=== PATIENT | male | born 1960 | race Caucasian/White ===

== ENCOUNTER 2018-10-29 06:23 | Day surgery (SDC) | payer BC, SELFPAY ==
[2018-10-29] VITALS (9 sets, daily range): BP systolic 131–157; BP diastolic 73–90; PULSE 65–74; RESP 12–17; TEMP 35.9–36.7; O2SAT 96–100
[2018-10-29] MEDS: Lactated Ringers 1,000 ML 30 ML IV ×2 (07:00→09:05)
[2018-10-29] MEDS: Lidocaine 1% Pres-Free 5 ML VIAL (08:51)
--- NOTE | 2018-10-29 10:34 | W.PM.OP ---
Date of service: 10/29/18 Time of Service: 08:00 Operative Note DATE OF PROCEDURE: 10/29/18 PRE-OP DIAGNOSIS: Recurrent right inguinal hernia POST-OP DIAGNOSIS: other (Recurrent right direct inguinal hernia) PROCEDURE: Laparoscopic total extraperitoneal right inguinal hernia repair with mesh SURGEON: Sundeep Garcia PARACHUTE HARNESS RIGGER: Daisy Flores ANESTHESIA: GETA (Immanuel Mariscal, ASSISTANT READING TEACHER; ASA 2 Mallampati class II) and regional (TAPBlock bilateral with 1.3% Exparel and 0.5% Marcaine) ESTIMATED BLOOD LOSS: 1 PATHOLOGY: none sent COMPLICATIONS: None Patient was transported to: PACU Patient's condition: stable Implants: Covidien pro-pump installation and servicer laparoscopic mesh lot number [id number] Indications: 58-year-old gentleman with history of right inguinal hernia referred for recurrent right inguinal hernia. He describes working several 3-4 weeks ago, performing heavy labor when he heard a pop in his right groin followed by a lot of discomfort. Since then he has had fairly constant right inguinal pain relieved with rest and NSAIDs. If he resumes any heavy activities he is the discomfort recurs him almost immediately upon heavy exertion. He has not noticed any bulge in his right groin that is tender. He was seen by his primary care provider who diagnosed the hernia recurrence. Physical examination by me was consistent with a recurrent left inguinal hernia. Recommended laparoscopic repair for recurrent right inguinal hernia. I reviewed the procedure with Linda, and discussed the risks of the procedure. All his questions were answered to his satisfaction. Findings: In examining the extraperitoneal space on the right side, no recurrent indirect inguinal hernia was identified, but a direct inguinal hernia was noted. Dissection of the left extraperitoneal space demonstrated no no hernia of the indirect, direct, or femoral space. A Covidien mesh was subsequently placed to cover the right direct indirect and femoral spaces. Procedure Description: The patient was brought to the operating room. He was positioned supine, and all bony prominences were padded. He received Ancef 2 g preoperatively. An endotracheal tube was placed by anesthesia and sedation was titrated for effect. An appropriate timeout was taken reviewing the patient's identification, allergies, medications, procedure, and site. His arms were positioned at 90 degrees. A Hyde catheter was inserted after intubation, and sequential compression devices were applied prior to intubation. The abdomen was then prepped with ChloraPrep and block draped in standard sterile fashion for a laparoscopic total extraperitoneal inguinal hernia repair. I began by making a 2.5 cm linear transverse incision infraumbilically. Incision was carried down to the linea alba using sharp and blunt dissection. Once linea alba was identified, I made a linear transverse incision just lateral to the linea alba through the anterior rectus fascia to expose the underlying muscle. I then used an S retractor to sweep the muscle laterally exposing the posterior rectus sheath. Using my finger then a Yankauer suction I gently dilated the posterior tract down to the pubic symphysis. This was followed by dissection using a [employer] Spacemaker introducer dilator trocar. The introducer for the catheter was advanced to the pubic symphysis and slightly over it I then withdrew through the introducer piece slid the dilator portion further into the tract, then under direct visualization the dilator balloon was insufflated until I could clearly see the pubic symphysis and Vini's ligament exposed. The the dilator balloon was then removed, and the extraperitoneal space of Retzius was insufflated with CO2. The Spacemaker trocar balloon was then insufflated. I then placed two 5 mm trochars under direct visualization in the midline. The first was placed 2 cm superior to the pubic symphysis, and the second was placed between the 5 mm trocar in the Spacemaker trocar. I then proceeded by completing dissection of the Vini's ligament on the left and right side from the midline. I then turned my attention to developing the potential space on the right. I dissected out the right potential space from the inferior epigastrics to the right anterior superior iliac spine. The vas deferens was then identified, and the cord structures associated were then dissected free circumferentially there is a small cord lipoma that was reduced but I find no evidence of a indirect inguinal hernia. Inspecting the right side the indirect space was clearly open as if the hernia had been present and reduced at the time of induction of anesthesia. There is no evidence of a femoral hernia on the right side. I then repeated my dissection on the left side from the left inferior epigastric vessels to the left anterior superior iliac spine was bluntly dissected to expose the cord structures. The left fast vas deferens was identified. Subsequently the vas deferens and associated cord structures were circumferentially dissected. There is no evidence of a left direct, indirect, or femoral hernia. Proceeded to place a Covidien pro-pump installation and servicer laparoscopic mesh Blue Line centered medially. The mesh was rolled and introduced through the Spacemaker trocar into the space of Retzius. The medial portion of the mesh was aligned at the center of the pubic symphysis or just lateral to her just to the left of the center the remainder of the mesh was stretched out to the anterior superior iliac spine. The mesh was then unrolled intra-abdominally from a superior to inferior to overlie the direct, indirect and femoral potential space spaces. It was pressed into place with good apposition to the tissue. The abdomen was desufflated 5 trochars removed under direct visualization I did hold the mesh inferior portion in place as the space closed down the Spacemaker trocar was removed. The anterior rectus fascia was closed using 0 Vicryl suture in a [id number] fashion. The umbilical incision was closed in layers with 3-0 Vicryl sutures approximating the subcutaneous tissue and 4-0 Vicryl closing the skin in subcuticular fashion. The remainder the trocar incisions were closed with the 4-0 Vicryl in subcuticular fashion. Skin affix and dry sterile dressings were applied. There are no comp occasions during the case patient tolerated very well he was extubated in the operating room, and brought to the postanesthesia care unit in good condition. All counts were reported as correct x2.
--- NOTE | 2018-10-29 10:41 | ROE_ITS ---
Date of service: 10/29/18 Time of Service: 08:00 Operative Note DATE OF PROCEDURE: 10/29/18 PRE-OP DIAGNOSIS: Recurrent right inguinal hernia POST-OP DIAGNOSIS: other (Recurrent right direct inguinal hernia) PROCEDURE: Laparoscopic total extraperitoneal right inguinal hernia repair with mesh SURGEON: Sundeep Garcia HACK DRIVER: Daisy Flores ANESTHESIA: GETA (Immanuel Mariscal, GARMENT ALTERATION EXAMINER; ASA 2 Mallampati class II) and regional ( TAPBlock bilateral with 1.3% Exparel and 0.5% Marcaine) ESTIMATED BLOOD LOSS: 1 PATHOLOGY: none sent COMPLICATIONS: None Patient was transported to: PACU Patient's condition: stable Implants: Covidien pro-extension course counselor laparoscopic mesh lot number [id number] Indications: 58-year-old gentleman with history of right inguinal hernia referred for recurrent right inguinal hernia. He describes working several 3-4 weeks ago, performing heavy labor when he heard a pop in his right groin followed by a lot of discomfort. Since then he has had fairly constant right inguinal pain relieved with rest and NSAIDs. If he resumes any heavy activities he is the discomfort recurs him almost immediately upon heavy exertion. He has not noticed any bulge in his right groin that is tender. He was seen by his primary care provider who diagnosed the hernia recurrence. Physical examination by me was consistent with a recurrent left inguinal hernia. Recommended laparoscopic repair for recurrent right inguinal hernia. I reviewed the procedure with Linda, and discussed the risks of the procedure. All his questions were answered to his satisfaction. Findings: In examining the extraperitoneal space on the right side, no recurrent indirect inguinal hernia was identified, but a direct inguinal hernia was noted. Dissection of the left extraperitoneal space demonstrated no no hernia of the indirect, direct, or femoral space. A Covidien mesh was subsequently placed to cover the right direct indirect and femoral spaces. Procedure Description: The patient was brought to the operating room. He was positioned supine, and all bony prominences were padded. He received Ancef 2 g preoperatively. An endotracheal tube was placed by anesthesia and sedation was titrated for effect. An appropriate timeout was taken reviewing the patient's identification , allergies, medications, procedure, and site. His arms were positioned at 90 degrees. A Hyde catheter was inserted after intubation, and sequential compression devices were applied prior to intubation. The abdomen was then prepped with ChloraPrep and block draped in standard sterile fashion for a laparoscopic total extraperitoneal inguinal hernia repair. I began by making a 2.5 cm linear transverse incision infraumbilically. Incision was carried down to the linea alba using sharp and blunt dissection. Once linea alba was identified, I made a linear transverse incision just lateral to the linea alba through the anterior rectus fascia to expose the underlying muscle. I then used an S retractor to sweep the muscle laterally exposing the posterior rectus sheath. Using my finger then a Yankauer suction I gently dilated the posterior tract down to the pubic symphysis. This was followed by dissection using a [employer] Spacemaker introducer dilator trocar. The introducer for the catheter was advanced to the pubic symphysis and slightly over it I then withdrew through the introducer piece slid the dilator portion further into the tract, then under direct visualization the dilator balloon was insufflated until I could clearly see the pubic symphysis and Vini 's ligament exposed. The the dilator balloon was then removed, and the extraperitoneal space of Retzius was insufflated with CO2. The Spacemaker trocar balloon was then insufflated. I then placed two 5 mm trochars under direct visualization in the midline. The first was placed 2 cm superior to the pubic symphysis, and the second was placed between the 5 mm trocar in the Spacemaker trocar. I then proceeded by completing dissection of the Vini's ligament on the left and right side from the midline. I then turned my attention to developing the potential space on the right. I dissected out the right potential space from the inferior epigastrics to the right anterior superior iliac spine. The vas deferens was then identified, and the cord structures associated were then dissected free circumferentially there is a small cord lipoma that was reduced but I find no evidence of a indirect inguinal hernia. Inspecting the right side the indirect space was clearly open as if the hernia had been present and reduced at the time of induction of anesthesia. There is no evidence of a femoral hernia on the right side. I then repeated my dissection on the left side from the left inferior epigastric vessels to the left anterior superior iliac spine was bluntly dissected to expose the cord structures. The left fast vas deferens was identified. Subsequently the vas deferens and associated cord structures were circumferentially dissected. There is no evidence of a left direct, indirect, or femoral hernia. Proceeded to place a Covidien pro-extension course counselor laparoscopic mesh Blue Line centered medially. The mesh was rolled and introduced through the Spacemaker trocar into the space of Retzius. The medial portion of the mesh was aligned at the center of the pubic symphysis or just lateral to her just to the left of the center the remainder of the mesh was stretched out to the anterior superior iliac spine. The mesh was then unrolled intra-abdominally from a superior to inferior to overlie the direct, indirect and femoral potential space spaces. It was pressed into place with good apposition to the tissue. The abdomen was desufflated 5 trochars removed under direct visualization I did hold the mesh inferior portion in place as the space closed down the Spacemaker trocar was removed. The anterior rectus fascia was closed using 0 Vicryl suture in a [id number] fashion. The umbilical incision was closed in layers with 3-0 Vicryl sutures approximating the subcutaneous tissue and 4-0 Vicryl closing the skin in subcuticular fashion. The remainder the trocar incisions were closed with the 4-0 Vicryl in subcuticular fashion. Skin affix and dry sterile dressings were applied. There are no comp occasions during the case patient tolerated very well he was extubated in the operating room, and brought to the postanesthesia care unit in good condition. All counts were reported as correct x2.
--- NOTE | 2018-10-29 11:36 | W.PM.DSUDISC ---
Discharge Plan Disposition Patient Disposition: HOME Condition: Good Discharge Details Reason For Visit: RECURRENT (L) INGUINAL Attending Provider: Sundeep Garcia Primary Care Provider: Royla Sherwood Home Meds and New Rx's Prescriptions: New tramadol 50 mg Tablet 50 mg PO Q6H PRN PRNQty: 12 RF: 0 Continue naproxen sodium 550 MG tablet 550 mg PO Q12H PRN Qty: 60 RF: 6 magnesium oxide 400 MG capsule 400 mg PO HS Qty: 30 RF: 6 multivitamin [Daily Multi-Vitamin] 1 EACH tablet 1 ea PO DAILY RF: 0 iron 18 MG tablet 50 mg PO PRN RF: 0 loratadine-pseudoephedrine [Claritin-D 24 Hour] 10-240 mg Tablet Extended Release 24 Hr 1 tab PO DAILY PRNRF: 0 riboflavin (vitamin B2) [Vitamin B-2] 100 MG tablet 100 mg PO BID RF: 0 ibuprofen 200 MG capsule 200 - 600 mg PO PRN PRNRF: 0 Discharge Instructions Instructions: Laparoscopic Herniorrhaphy (DC) Additional Instructions: Dr. Sundeep Garcia Post-Operative Discharge Instructions 1. Because there will be medication in your system for the next 24 hours, you may feel a little sleepy. Your coordination will be affected. Therefore: Do not drive or operate dangerous equipment for 24 hours. Do not drink alcohol beverages for 24 hours (not even beer). Plan to go home and rest for the day. Restrictions: Do not lift over 20lbs for 2 weeks. No strenuous bending or twisting for 2 weeks, if it hurts stop. No baths, you can shower. Let warm soapy water run over wound, then pat wound dry. Activity: The day of surgery spend most of the day resting in a comfortable bed or recliner. 2-3 times during the day get up and walk around the house. The day after surgery, or after your discharge, walk at least 3 times a day and spend increasing amounts of time walking and sitting up. If you are tired rest, but keep moving as able. Diet: Resume home diet as tolerated. Start with a light diet, your appetite will improve with time. Drink at least 4-6 glasses of water per day to keep hydrated. Wound Care: Removed dressing in 24 hrs, skin glue will wear off. You may cover the wound with a dry sterile dressing to keep clothing from rubbing against the wound. Continue all your regular medications unless directed otherwise. Call the office or the [facility] , If you have: Pain not controlled with pain medication. Nausea and vomiting. Temperature greater than 101 degrees Fahrenheit. Drainage from your wound that soaks through your dressing. *No more than 4000 milligrams of Tylenol in 24 hours. Narcotic pain medication can be constipating, if you have not had a bowel movement within 3 days use a laxative, I recommend Milk of Magnesia (MOM) 1oz. every 6 hrs until you have a bowel movement. I understand the above instructions and have no questions. Signature of Patient or Responsible Adult Escort Date/Time Name of Responsible Adult Escort Signature of Nurse Date/Time Revised 03/20/11 Referrals: Sundeep Garcia DO [ [facility] STAFF PHYSICIAN] - 11/18/18 9:45 am (Follow up after Lap total extraperitoneal inguinal hernia repair) Activity:: see instructions Remove Dressings/Wound Care:: 24 hours Shower/Bathe:: 24 hours Diet:: As Tolerated Discharge Orders Discharge Orders: Discharge Order (Routine); Ordered 10/29/18 Ordered By: Sundeep Garcia DS: Diagnosis Discharge Diagnosis (1) Recurrent inguinal hernia of right side without obstruction or gangrene: Status: Acute Asessment and Plan: Repaired Laparoscopically: Operative Note DATE OF PROCEDURE: 10/29/18 PRE-OP DIAGNOSIS: Recurrent right inguinal hernia POST-OP DIAGNOSIS: other (Recurrent right direct inguinal hernia) PROCEDURE: Laparoscopic total extraperitoneal right inguinal hernia repair with mesh SURGEON: uSndeep Garcia ROPE LAYING MACHINE OPERATOR: Daisy Flores ANESTHESIA: GETA (Immanuel Mariscal, SENIOR WEB ANALYST; ASA 2 Mallampati class II) and regional (TAPBlock bilateral with 1.3% Exparel and 0.5% Marcaine) ESTIMATED BLOOD LOSS: 1 PATHOLOGY: none sent COMPLICATIONS: None Patient was transported to: PACU Patient's condition: stable Implants: Covidien pro-ultrasonic tester laparoscopic mesh lot number [id number] Indications: 58-year-old gentleman with history of right inguinal hernia referred for recurrent right inguinal hernia. He describes working several 3-4 weeks ago, performing heavy labor when he heard a pop in his right groin followed by a lot of discomfort. Since then he has had fairly constant right inguinal pain relieved with rest and NSAIDs. If he resumes any heavy activities he is the discomfort recurs him almost immediately upon heavy exertion. He has not noticed any bulge in his right groin that is tender. He was seen by his primary care provider who diagnosed the hernia recurrence. Physical examination by me was consistent with a recurrent left inguinal hernia. Recommended laparoscopic repair for recurrent right inguinal hernia. I reviewed the procedure with Mr. Mckeon, and discussed the risks of the procedure. All his questions were answered to his satisfaction. Findings: In examining the extraperitoneal space on the right side, no recurrent indirect inguinal hernia was identified, but a direct inguinal hernia was noted. Dissection of the left extraperitoneal space demonstrated no no hernia of the indirect, direct, or femoral space. A Covidien mesh was subsequently placed to cover the right direct indirect and femoral spaces. Procedure Description: The patient was brought to the operating room. He was positioned supine, and all bony prominences were padded. He received Ancef 2 g preoperatively. An endotracheal tube was placed by anesthesia and sedation was titrated for effect. An appropriate timeout was taken reviewing the patient's identification, allergies, medications, procedure, and site. His arms were positioned at 90 degrees. A Hyde catheter was inserted after intubation, and sequential compression devices were applied prior to intubation. The abdomen was then prepped with ChloraPrep and block draped in standard sterile fashion for a laparoscopic total extraperitoneal inguinal hernia repair. I began by making a 2.5 cm linear transverse incision infraumbilically. Incision was carried down to the linea alba using sharp and blunt dissection. Once linea alba was identified, I made a linear transverse incision just lateral to the linea alba through the anterior rectus fascia to expose the underlying muscle. I then used an S retractor to sweep the muscle laterally exposing the posterior rectus sheath. Using my finger then a Yankauer suction I gently dilated the posterior tract down to the pubic symphysis. This was followed by dissection using a [employer] Spacemaker introducer dilator trocar. The introducer for the catheter was advanced to the pubic symphysis and slightly over it I then withdrew through the introducer piece slid the dilator portion further into the tract, then under direct visualization the dilator balloon was insufflated until I could clearly see the pubic symphysis and Vini's ligament exposed. The the dilator balloon was then removed, and the extraperitoneal space of Retzius was insufflated with CO2. The Spacemaker trocar balloon was then insufflated. I then placed two 5 mm trochars under direct visualization in the midline. The first was placed 2 cm superior to the pubic symphysis, and the second was placed between the 5 mm trocar in the Spacemaker trocar. I then proceeded by completing dissection of the Vini's ligament on the left and right side from the midline. I then turned my attention to developing the potential space on the right. I dissected out the right potential space from the inferior epigastrics to the right anterior superior iliac spine. The vas deferens was then identified, and the cord structures associated were then dissected free circumferentially there is a small cord lipoma that was reduced but I find no evidence of a indirect inguinal hernia. Inspecting the right side the indirect space was clearly open as if the hernia had been present and reduced at the time of induction of anesthesia. There is no evidence of a femoral hernia on the right side. I then repeated my dissection on the left side from the left inferior epigastric vessels to the left anterior superior iliac spine was bluntly dissected to expose the cord structures. The left fast vas deferens was identified. Subsequently the vas deferens and associated cord structures were circumferentially dissected. There is no evidence of a left direct, indirect, or femoral hernia. Proceeded to place a Covidien pro-ultrasonic tester laparoscopic mesh Blue Line centered medially. The mesh was rolled and introduced through the Spacemaker trocar into the space of Retzius. The medial portion of the mesh was aligned at the center of the pubic symphysis or just lateral to her just to the left of the center the remainder of the mesh was stretched out to the anterior superior iliac spine. The mesh was then unrolled intra-abdominally from a superior to inferior to overlie the direct, indirect and femoral potential space spaces. It was pressed into place with good apposition to the tissue. The abdomen was desufflated 5 trochars removed under direct visualization I did hold the mesh inferior portion in place as the space closed down the Spacemaker trocar was removed. The anterior rectus fascia was closed using 0 Vicryl suture in a [id number] fashion. The umbilical incision was closed in layers with 3-0 Vicryl sutures approximating the subcutaneous tissue and 4-0 Vicryl closing the skin in subcuticular fashion. The remainder the trocar incisions were closed with the 4-0 Vicryl in subcuticular fashion. Skin affix and dry sterile dressings were applied. There are no comp occasions during the case patient tolerated very well he was extubated in the operating room, and brought to the postanesthesia care unit in good condition. All counts were reported as correct x2.
--- NOTE | 2018-10-29 11:43 | PDOC.DSDIS_ITS ---
Discharge Plan Disposition Patient Disposition: HOME Condition: Good Discharge Details Reason For Visit: RECURRENT (L) INGUINAL Attending Provider: Sundeep Garcia Primary Care Provider: Royal Sherwood Home Meds and New Rx's Prescriptions: New tramadol 50 mg Tablet 50 mg PO Q6H PRN PRNQty: 12 RF: 0 Continue naproxen sodium 550 MG tablet 550 mg PO Q12H PRN Qty: 60 RF: 6 magnesium oxide 400 MG capsule 400 mg PO HS Qty: 30 RF: 6 multivitamin [Daily Multi-Vitamin] 1 EACH tablet 1 ea PO DAILY RF: 0 iron 18 MG tablet 50 mg PO PRN RF: 0 loratadine-pseudoephedrine [Claritin-D 24 Hour] 10-240 mg Tablet Extended Release 24 Hr 1 tab PO DAILY PRNRF: 0 riboflavin (vitamin B2) [Vitamin B-2] 100 MG tablet 100 mg PO BID RF: 0 ibuprofen 200 MG capsule 200 - 600 mg PO PRN PRNRF: 0 Discharge Instructions Instructions: Laparoscopic Herniorrhaphy (DC) Additional Instructions: Dr. Sundeep Garcia Post-Operative Discharge Instructions 1. Because there will be medication in your system for the next 24 hours, you may feel a little sleepy. Your coordination will be affected. Therefore: * Do not drive or operate dangerous equipment for 24 hours. * Do not drink alcohol beverages for 24 hours (not even beer). * Plan to go home and rest for the day. Restrictions: * Do not lift over 20lbs for 2 weeks. * No strenuous bending or twisting for 2 weeks, if it hurts stop. * No baths, you can shower. Let warm soapy water run over wound, then pat wound dry. Activity: * The day of surgery spend most of the day resting in a comfortable bed or recliner. 2-3 times during the day get up and walk around the house. * The day after surgery, or after your discharge, walk at least 3 times a day and spend increasing amounts of time walking and sitting up. If you are tired rest, but keep moving as able. Diet: * Resume home diet as tolerated. * Start with a light diet, your appetite will improve with time. * Drink at least 4-6 glasses of water per day to keep hydrated. Wound Care: * Removed dressing in 24 hrs, skin glue will wear off. * You may cover the wound with a dry sterile dressing to keep clothing from rubbing against the wound. Continue all your regular medications unless directed otherwise. Call the office or the Hospital Millinery Department Manager , If you have: * Pain not controlled with pain medication. * Nausea and vomiting. * Temperature greater than 101 degrees Fahrenheit. * Drainage from your wound that soaks through your dressing. *No more than 4000 milligrams of Tylenol in 24 hours. Narcotic pain medication can be constipating, if you have not had a bowel movement within 3 days use a laxative, I recommend Milk of Magnesia (MOM) 1oz. every 6 hrs until you have a bowel movement. I understand the above instructions and have no questions. _ Signature of Patient or Responsible Adult Escort Date/Time _ Name of Responsible Adult Escort _ Signature of Nurse Date/Time Revised 03/20/11 Referrals: Sundeep Garcia DO [ [facility] STAFF PHYSICIAN] - 11/18/18 9:45 am (Follow up after Lap total extraperitoneal inguinal hernia repair) Activity:: see instructions Remove Dressings/Wound Care:: 24 hours Shower/Bathe:: 24 hours Diet:: As Tolerated Discharge Orders Discharge Orders: Discharge Order (Routine); Ordered 10/29/18 Ordered By: Sundeep Garcia DS: Diagnosis Discharge Diagnosis (1) Recurrent inguinal hernia of right side without obstruction or gangrene: Status: Acute Asessment and Plan: Repaired Laparoscopically: Operative Note DATE OF PROCEDURE: 10/29/18 PRE-OP DIAGNOSIS: Recurrent right inguinal hernia POST-OP DIAGNOSIS: other (Recurrent right direct inguinal hernia) PROCEDURE: Laparoscopic total extraperitoneal right inguinal hernia repair with mesh SURGEON: Sundeep Garcia SCIENCE EDUCATION PROFESSOR: Daisy Flores ANESTHESIA: GETA (Immanuel Mariscal, SUBCONTRACT MANAGER; ASA 2 Mallampati class II) and regional ( TAPBlock bilateral with 1.3% Exparel and 0.5% Marcaine) ESTIMATED BLOOD LOSS: 1 PATHOLOGY: none sent COMPLICATIONS: None Patient was transported to: PACU Patient's condition: stable Implants: Covidien pro-division chief laparoscopic mesh lot number [id number] Indications: 58-year-old gentleman with history of right inguinal hernia referred for recurrent right inguinal hernia. He describes working several 3-4 weeks ago, performing heavy labor when he heard a pop in his right groin followed by a lot of discomfort. Since then he has had fairly constant right inguinal pain relieved with rest and NSAIDs. If he resumes any heavy activities he is the discomfort recurs him almost immediately upon heavy exertion. He has not noticed any bulge in his right groin that is tender. He was seen by his primary care provider who diagnosed the hernia recurrence. Physical examination by me was consistent with a recurrent left inguinal hernia. Recommended laparoscopic repair for recurrent right inguinal hernia. I reviewed the procedure with Mr. Mckeon, and discussed the risks of the procedure. All his questions were answered to his satisfaction. Findings: In examining the extraperitoneal space on the right side, no recurrent indirect inguinal hernia was identified, but a direct inguinal hernia was noted. Dissection of the left extraperitoneal space demonstrated no no hernia of the indirect, direct, or femoral space. A Covidien mesh was subsequently placed to cover the right direct indirect and femoral spaces. Procedure Description: The patient was brought to the operating room. He was positioned supine, and all bony prominences were padded. He received Ancef 2 g preoperatively. An endotracheal tube was placed by anesthesia and sedation was titrated for effect. An appropriate timeout was taken reviewing the patient's identification , allergies, medications, procedure, and site. His arms were positioned at 90 degrees. A Hyde catheter was inserted after intubation, and sequential compression devices were applied prior to intubation. The abdomen was then prepped with ChloraPrep and block draped in standard sterile fashion for a laparoscopic total extraperitoneal inguinal hernia repair. I began by making a 2.5 cm linear transverse incision infraumbilically. Incision was carried down to the linea alba using sharp and blunt dissection. Once linea alba was identified, I made a linear transverse incision just lateral to the linea alba through the anterior rectus fascia to expose the underlying muscle. I then used an S retractor to sweep the muscle laterally exposing the posterior rectus sheath. Using my finger then a Yankauer suction I gently dilated the posterior tract down to the pubic symphysis. This was followed by dissection using a [employer] Spacemaker introducer dilator trocar. The introducer for the catheter was advanced to the pubic symphysis and slightly over it I then withdrew through the introducer piece slid the dilator portion further into the tract, then under direct visualization the dilator balloon was insufflated until I could clearly see the pubic symphysis and Vini 's ligament exposed. The the dilator balloon was then removed, and the extraperitoneal space of Retzius was insufflated with CO2. The Spacemaker trocar balloon was then insufflated. I then placed two 5 mm trochars under direct visualization in the midline. The first was placed 2 cm superior to the pubic symphysis, and the second was placed between the 5 mm trocar in the Spacemaker trocar. I then proceeded by completing dissection of the Vini's ligament on the left and right side from the midline. I then turned my attention to developing the potential space on the right. I dissected out the right potential space from the inferior epigastrics to the right anterior superior iliac spine. The vas deferens was then identified, and the cord structures associated were then dissected free circumferentially there is a small cord lipoma that was reduced but I find no evidence of a indirect inguinal hernia. Inspecting the right side the indirect space was clearly open as if the hernia had been present and reduced at the time of induction of anesthesia. There is no evidence of a femoral hernia on the right side. I then repeated my dissection on the left side from the left inferior epigastric vessels to the left anterior superior iliac spine was bluntly dissected to expose the cord structures. The left fast vas deferens was identified. Subsequently the vas deferens and associated cord structures were circumferentially dissected. There is no evidence of a left direct, indirect, or femoral hernia. Proceeded to place a Covidien pro-division chief laparoscopic mesh [place] centered medially. The mesh was rolled and introduced through the Spacemaker trocar into the space of Retzius. The medial portion of the mesh was aligned at the center of the pubic symphysis or just lateral to her just to the left of the center the remainder of the mesh was stretched out to the anterior superior iliac spine. The mesh was then unrolled intra-abdominally from a superior to inferior to overlie the direct, indirect and femoral potential space spaces. It was pressed into place with good apposition to the tissue. The abdomen was desufflated 5 trochars removed under direct visualization I did hold the mesh inferior portion in place as the space closed down the Spacemaker trocar was removed. The anterior rectus fascia was closed using 0 Vicryl suture in a [id number] fashion. The umbilical incision was closed in layers with 3-0 Vicryl sutures approximating the subcutaneous tissue and 4-0 Vicryl closing the skin in subcuticular fashion. The remainder the trocar incisions were closed with the 4-0 Vicryl in subcuticular fashion. Skin affix and dry sterile dressings were applied. There are no comp occasions during the case patient tolerated very well he was extubated in the operating room, and brought to the postanesthesia care unit in good condition. All counts were reported as correct x2.
[2018-10-29] MEDS: traMADol 50 MG TAB PO (13:07)
== END 2018-10-29 13:43 | disposition home or self-care (01) ==
PROVIDERS: PCP Emergency Medicine; Visit Provider Surgery
PROC: (CPT 49650; principal; 2018-10-29 07:30)
DX: K40.91 Unilateral inguinal hernia, without obstruction or gangrene, recurrent (principal); G47.33 Obstructive sleep apnea (adult) (pediatric)
CPT/HCPCS: 49651; 76942; C1781; J0131; J0690; J1100; J1885; J2250; J2405; J3010

== ENCOUNTER 2019-04-01 09:51 | Outpatient (CLI) | payer BC, SELFPAY | END 2019-04-01 10:11 | PROVIDERS: PCP Emergency Medicine; Visit Provider Emergency Medicine | DX: Z12.5 Encounter for screening for malignant neoplasm of prostate (principal) | CPT/HCPCS: 36415; 84153 ==

== ENCOUNTER 2019-12-25 00:56 | Outpatient (CLI) | payer BC, SELFPAY ==
[2019-12-25 08:22] LABS: HCT 45.5 % (40.0-50.0); HGB 15.3 g/dL (13.5-17.5); Mean Corp. HGB Concentration 33.6 g/dL (32.0-36.0); Mean Corpuscular Hemoglobin 29.8 pg (27.0-33.0); Mean Corpuscular Volume 88.7 fL (80-95); Mean Platelet Volume 9.1 fL (8.0-11.0); Platelet Count 335 x1000/uL (130-400); RBC 5.13 m/cumm (4.50-6.00); White Blood Cell Count 4.69 k/cumm (4.4-10.8)
[2019-12-25 09:23] LABS: ALT 49 U/L (16-63); AST 39 U/L (15-37); Albumin 4.1 g/dL (3.4-5.0); Alkaline Phosphatase 59 U/L (46-116); Anion Gap 7.9 mmol/L (3-11); BUN 19 mg/dL (7-18); Bilirubin, Total 1.5 mg/dL (0.2-1.0); CO2 29.1 mmol/L (21.0-32.0); CREATININE 1.04 mg/dL (0.70-1.30); Calcium 8.7 mg/dL (8.5-10.1); Chloride 104 mmol/L (98-107); Glucose 96 mg/dL (74-106); Potassium 4.8 mmol/L (3.5-5.1); Sodium 141 mmol/L (136-145); TSH 2.32 uIU/mL (0.36-3.74)
== END 2019-12-25 01:16 ==
PROVIDERS: PCP Emergency Medicine; Visit Provider Family Medicine
DX: I10 Essential (primary) hypertension (principal)
CPT/HCPCS: 36415; 80053; 85027; 84443

== ENCOUNTER 2020-04-20 11:22 | Outpatient (CLI) | payer BC, SELFPAY ==
--- NOTE | 2020-04-20 10:30 | DI.RAD_ITS ---
EXAM: XR KNEE RT 2V AP,LAT CLINICAL HISTORY: PAIN TECHNIQUE: 2D digital imaging was performed. COMPARISON: No exams were available for comparison FINDINGS: There has been a previous ACL repair with hardware in the distal femur and proximal tibia. There is moderate narrowing of the medial femoral tibial joint space. There is mild to moderate periarticula r spurring. Spurring is also seen at the tibial spines and patellofemoral joint. There is old heale d fibular proximal fibular fracture. IMPRESSION: Degenerative and postsurgical changes.
== END 2020-04-20 11:42 ==
PROVIDERS: PCP Emergency Medicine; Referring Provider Emergency Medicine; Visit Provider Orthopaedic Surgery
DX: M25.561 Pain in right knee (principal); M17.11 Unilateral primary osteoarthritis, right knee; Z47.89 Encounter for other orthopedic aftercare
CPT/HCPCS: 73560

== ENCOUNTER 2020-07-01 02:32 | Outpatient (CLI) | payer BC, SELFPAY ==
[2020-07-01 13:06] LABS: HGB 13.6 g/dL (13.5-17.5); MCH 29.8 pg (27.0-33.0); MCHC 32.4 % (32.0-36.0); MCV 92.1 fL (80-95); MPV 9.9 fL (8.0-11.0); Platelet Count 305 10^3/uL (130-400); RBC 4.56 10^6/uL (4.36-5.78); RDW 12.7 % (11.8-14.1); RDW-SD 43.2 fL; WBC 4.88 10^3/uL (4.4-10.8)
[2020-07-01 13:20] LABS: ALT 27 U/L (16-63); AST 31 U/L (15-37); Alkaline Phosphatase 56 U/L (46-116); Anion Gap 6.6 mmol/L (3-11); BUN 18 mg/dL (7-18); CO2 30.4 mmol/L (21.0-32.0); CREATININE 1.01 mg/dL (0.70-1.30); Calcium 9.2 mg/dL (8.5-10.1); Chloride 105 mmol/L (98-107); Glucose 96 mg/dL (74-106); Potassium 4.6 mmol/L (3.5-5.1); Sodium 142 mmol/L (136-145); Total Protein 6.8 g/dL (6.4-8.2)
== END 2020-07-01 02:52 ==
PROVIDERS: PCP Emergency Medicine; Visit Provider Emergency Medicine
DX: R07.9 Chest pain, unspecified (principal)
CPT/HCPCS: 36415; 80053; 85027

== ENCOUNTER 2020-07-06 01:01 | Outpatient (CLI) | payer BC, SELFPAY ==
--- NOTE | 2020-07-06 06:45 | DI.NM_ITS ---
APPROVED REPORT Exam: Exercise Treadmill Patient Location: Out-Patient Room/Bed: Stress Nurse: Luh Kirkland RN BMI: 27.60 Baseline Rhythm: Sinus Rhythm Comment: Probably left ventricular hypertrophy Indications: Exertional chest pain - described as intense heartburn that worsens with exercise Medical History Medical History: GERD, HTN Cardiac Medications: Lisinopril, Amlodipine, Magnesium, Omeprazole Allergies: No known drug allergies Cardiac Risk Factors: HTN, FHX of CAD Exercise History: Physically active Lung Sounds: Clear to auscultation Heart Sounds: Regular Stress Test Details Test: Exercise stress testing was performed using a Deyvi protocol. Nuclear Acquisition: Rest Tc-99m/Stress Tc-99m 1 day Rest Isotope: Tc-99m Sestamibi. Dose: 10.1 Date: 07/06/2020 Injection Time: 0935 Stress Isotope: Tc-99m Sestamibi. Dose: 30.1 Date: 07/06/2020 Injection Time: 1120 HR Resting HR Supine: 62 bpm Max Heart Rate (APMHR): 160 bpm Resting HR Standin bpm Target HR (85% APMHR): 136 bpm Max HR Achieved: 140 bpm % of APMHR: 87 Recovery HR: 77 bpm HR response to stress: Normal HR response to stress BP Resting BP Supine: 142/84 mmHg Resting BP Standin/80 mmHg Max BP: 180/68 mmHg Recovery BP: 144/80 mmHg BP response to stress: Normal blood pressure response to stress. ECG Resting ECG: Sinus Rhythm Stress ECG: Sinus Tachycardia ST Change: Upsloping ST depression to Horizontal ST depression first noted after 5 miniutes of exerci se retuning to baseline by 1 minute recover. Lead(s): II, III, aVF,V3, V4, V5, V6, Stage: 2 Arrhythmia: VPC's Recovery ECG: Sinus Rhythm Recovery ST Change: Downsloping ST depressions returns to baseline by 8 minutes recovery time. Lead(s): II, III, aVF, V4, V5, V6 Recovery Arrhythmia: rare PVC Clinical Reason for Termination: Targe HR Achieved Stress Symptoms: Chest pain Exercise duration: 9 min32 sec Highest Stage Reached: Stage 3: 3.4 mph at 14% grade. Exercise capacity: 11.04 METs Functional Capacity: Average Capacity Stress ECG Conclusion 1. Patient exercised for 9 minutes (11 METS). 2. Patient developed symptoms as well as EKG changes suggestive of ischemia. 3. These EKG changes persisted until about 3 minutes of recovery. Critical Notification Critical Value: Yes Physician Notified Date: 07/06/2020 Time: 1150 Physician Name: Dr Ocasio Response Time: 1219 Stress Test Summary STAGE Time (mins) Speed (mph) Grade (%) HR BP SYMPTOMS METS Supine 62 142/84 Standing 72 148/80 1 3 1.7 10 94 164/76 4.6 2 6 2.5 12 115 174/72 2/10 chest pain described as heartburn 7 3 9 3.4 14 136 180/68 4/10 chest pain described as heartburn radiating to throat 10.2 4 12 4.2 16 5-6/10 chest pain described as heartburn 12.9 1 min recovery 118 178/70 3/10 chest pain, symptoms subsiding 3 min recovery 88 164/78 2/10 chest pain, symptoms subsiding 6 min recovery 77 144/80 symptoms subsided. MPI Conclusion The patient's ejection fraction was 48% with stress. There were no wall motion abnormalities. There is a small area of reversible ischemia at the apex. The imaging as well as the EKG portion of this exam were abnormal and suggestive of ischemia. Radiologist Interpretation Radiologist Interpretation by: John Shah MD Interpretation Date/Time: 07/06/2020 16:13:23
== END 2020-07-06 01:21 ==
PROVIDERS: PCP Emergency Medicine; Visit Provider Emergency Medicine
DX: R07.9 Chest pain, unspecified (principal); I10 Essential (primary) hypertension; Z82.49 Family history of ischemic heart disease and other diseases of the circulatory system; R94.39 Abnormal result of other cardiovascular function study
CPT/HCPCS: 78452; 93017

== ENCOUNTER 2020-08-06 15:33 | Outpatient (RCR) | payer BC, SELFPAY | END 2020-08-25 23:59 | disposition home or self-care (01) | LOC: CR 15:33 | PROVIDERS: PCP Emergency Medicine; Visit Provider Family Medicine ==

== ENCOUNTER 2020-08-09 15:40 | Outpatient (CLI) | payer BC, SELFPAY ==
[2020-08-10 23:57] LABS: COVID-19 RT-PCR Result NEGATIVE (Negative)
== END 2020-08-09 16:00 ==
PROVIDERS: PCP Emergency Medicine; Visit Provider Family Medicine
DX: Z11.59 Encounter for screening for other viral diseases (principal); Z01.818 Encounter for other preprocedural examination
CPT/HCPCS: U0003

== ENCOUNTER 2020-08-12 04:14 | Outpatient (CLI) | payer BC, SELFPAY ==
[2020-08-12 08:44] LABS: Calculated LDL 78 mg/dL (<100); Cholesterol 144 mg/dL (<200); HDL Cholesterol 50 mg/dL (40-60); Triglyceride 83 mg/dL (<150)
== END 2020-08-12 04:34 ==
PROVIDERS: PCP Emergency Medicine; Visit Provider Emergency Medicine
DX: I25.10 Atherosclerotic heart disease of native coronary artery without angina pectoris (principal)
CPT/HCPCS: 36415; 80061

== ENCOUNTER 2020-08-25 13:16 | Outpatient (RCR) | payer BC, SELFPAY | END 2020-08-25 23:59 | disposition home or self-care (01) | LOC: CR 13:16 | PROVIDERS: PCP Emergency Medicine; Visit Provider Family Medicine | DX: Z95.5 Presence of coronary angioplasty implant and graft (principal); R94.39 Abnormal result of other cardiovascular function study; Z51.89 Encounter for other specified aftercare | CPT/HCPCS: S9472 ==

== ENCOUNTER 2020-09-01 01:16 | Outpatient (CLI) | payer BC, SELFPAY ==
[2020-09-01 12:22] LABS: ESR 7 mm/hr (1-20)
[2020-09-01 12:24] LABS: C-Reactive Protein 0.09 mg/dL (0.0-0.3)
[2020-09-01 19:17] LABS: CRP, High Sensitivity 0.31 mg/L (See Note); Rheumatoid Factor <8.6 IU/mL (<12.0)
[2020-09-02 15:59] LABS: ANA Interpretation Negative (Negative)
[2020-09-07 18:01] LABS: Histamine Plasma 4.45 ng/mL (0-1.0)
== END 2020-09-01 01:36 ==
PROVIDERS: PCP Emergency Medicine; Visit Provider Family Medicine
DX: I25.10 Atherosclerotic heart disease of native coronary artery without angina pectoris (principal); I10 Essential (primary) hypertension; R53.83 Other fatigue; J30.89 Other allergic rhinitis; L40.8 Other psoriasis
CPT/HCPCS: 36415; 83090; 83520; 83695; 85652; 86141; 83088; 86038; 86140; 86431

== ENCOUNTER 2020-09-03 02:31 | Outpatient (CLI) | payer BC, SELFPAY ==
[2020-09-04 13:29] LABS: Lipoprotein (a) <6 mg/dL (<=30)
[2020-09-06 09:08] LABS: Homocysteine 11.5 umol/L (5.0-13.9)
== END 2020-09-03 02:51 ==
PROVIDERS: PCP Emergency Medicine; Visit Provider Family Medicine
DX: I10 Essential (primary) hypertension (principal); I25.10 Atherosclerotic heart disease of native coronary artery without angina pectoris; L40.8 Other psoriasis
CPT/HCPCS: 36415; 83090; 83695

== ENCOUNTER 2020-09-08 11:00 | Outpatient (RCR) | payer BC, SELFPAY | END 2020-09-25 23:59 | disposition home or self-care (01) | LOC: CR 11:00 | PROVIDERS: PCP Emergency Medicine; Visit Provider Family Medicine | DX: Z95.5 Presence of coronary angioplasty implant and graft (principal); Z51.89 Encounter for other specified aftercare; I25.10 Atherosclerotic heart disease of native coronary artery without angina pectoris; I10 Essential (primary) hypertension | CPT/HCPCS: S9472 ==

== ENCOUNTER 2020-10-04 08:43 | Outpatient (CLI) | payer BC, SELFPAY ==
[2020-10-06 10:06] LABS: SARS-CoV-2 RNA Not Detected (NotDetected); SARS-CoV-2 RNA Source Nasal/Nares
== END 2020-10-04 09:03 ==
PROVIDERS: PCP Emergency Medicine; Visit Provider Family Medicine
DX: Z11.51 Encounter for screening for human papillomavirus (HPV) (principal); Z01.818 Encounter for other preprocedural examination
CPT/HCPCS: U0003

== ENCOUNTER 2020-10-20 03:01 | Outpatient (CLI) | payer BC, SELFPAY ==
[2020-10-22 08:52] LABS: Homocysteine 12.9 umol/L (5.0-13.9)
== END 2020-10-20 03:21 ==
PROVIDERS: PCP Emergency Medicine; Visit Provider Family Medicine
DX: R79.89 Other specified abnormal findings of blood chemistry (principal)
CPT/HCPCS: 36415; 83090

== ENCOUNTER 2020-10-20 08:51 | Outpatient (REF) | payer BC, SELFPAY ==
[2020-10-29 14:49] LABS: Misc Referral (MAYO) See Comments
== END 2020-10-20 09:11 ==
LOC: LBN 08:51
PROVIDERS: PCP Emergency Medicine; Visit Provider Family Medicine
DX: J30.89 Other allergic rhinitis (principal)
CPT/HCPCS: 82542; 81050

== ENCOUNTER 2021-04-12 15:50 | Outpatient (REF) | payer BC, SELFPAY ==
[2021-04-12 20:54] LABS: Anion Gap 8.4 mmol/L (3-11); BUN 19 mg/dL (7-18); CO2 29.6 mmol/L (21.0-32.0); Calcium 8.9 mg/dL (8.5-10.1); Calculated LDL 55 mg/dL (<100); Chloride 105 mmol/L (98-107); Cholesterol 136 mg/dL (<200); Glucose 111 mg/dL (74-106); HDL Cholesterol 62 mg/dL (40-60); Potassium 4.3 mmol/L (3.5-5.1); Sodium 143 mmol/L (136-145); Triglyceride 98 mg/dL (<150)
[2021-04-13 17:00] LABS: PSA, Screening 3.1 ng/mL (0.0-4.5)
== END 2021-04-12 15:51 | disposition home or self-care (01) ==
LOC: LBN 15:50
PROVIDERS: PCP Emergency Medicine; Visit Provider Emergency Medicine
DX: I10 Essential (primary) hypertension (principal); I25.10 Atherosclerotic heart disease of native coronary artery without angina pectoris; Z12.5 Encounter for screening for malignant neoplasm of prostate
CPT/HCPCS: 80048; 80061; 84153

== ENCOUNTER 2021-04-22 15:22 | Outpatient (CLI) | payer BC, SELFPAY ==
--- NOTE | 2021-04-22 15:01 | DI.RAD_ITS ---
Exam(s) XR FOOT LT COMPLETE EXAM: XR FOOT LT COMPLETE CLINICAL HISTORY: Plantar puncture wound, LT FOOT PAIN, M79.672 TECHNIQUE: COMPARISON: No exams were available for comparison FINDINGS: Three views were obtained. There is a plantar fascia attachment enthesophyte of the calcaneus. Ther e is minimal degenerative change in the midfoot joints. There is a mild hallux valgus deformity with mild secondary degenerative changes at the 1st MTP joint. No other significant bony or soft tissue findings. IMPRESSION: RADIATION DOSE DELIVERED: Total DLP
== END 2021-04-22 15:42 ==
PROVIDERS: PCP Emergency Medicine; Visit Provider Emergency Medicine
DX: M79.672 Pain in left foot (principal); M77.32 Calcaneal spur, left foot; M20.12 Hallux valgus (acquired), left foot
CPT/HCPCS: 73630

== ENCOUNTER 2021-08-29 16:33 | Outpatient (CLI) | payer BC, SELFPAY ==
--- NOTE | 2021-08-29 15:00 | DI.RAD_ITS ---
Exam(s) XR ELBOW LT COMPLETE EXAM: XR ELBOW LT COMPLETE CLINICAL HISTORY: eval L elbow clicking and pain. TECHNIQUE: 2D digital imaging was performed. COMPARISON: No exams were available for comparison FINDINGS: BONES: No acute fracture is present. No bony destructive lesion is seen. JOINTS: The elbow is normally aligned. No joint effusion is seen. No loose bodies. Periarticular spu rring greatest at olecranon. Joint spaces well maintained. SOFT TISSUE: Normal. IMPRESSION: Mild degenerative changes. DATA REPOSITORY: RADIATION DOSE DELIVERED:
== END 2021-08-29 16:34 | disposition home or self-care (01) ==
LOC: DIORS 16:33
PROVIDERS: PCP Emergency Medicine; Referring Provider Emergency Medicine; Visit Provider Student in an Organized Health Care Education/Training Program
DX: M25.522 Pain in left elbow (principal)
CPT/HCPCS: 73080

== ENCOUNTER 2021-10-07 03:12 | Outpatient (CLI) | payer BC, SELFPAY ==
[2021-10-07 10:56] LABS: Source Nasal/Nares
[2021-10-07 15:42] LABS: COVID-19 PCR Negative (Negative)
== END 2021-10-07 03:13 | disposition home or self-care (01) ==
LOC: LBO 03:12
PROVIDERS: PCP Emergency Medicine; Visit Provider Surgery
DX: Z20.822 Contact with and (suspected) exposure to COVID-19 (principal); Z01.818 Encounter for other preprocedural examination
CPT/HCPCS: 87635

== ENCOUNTER 2021-10-10 07:04 | Day surgery (SDC) | payer BC, SELFPAY ==
--- NOTE | 2021-10-10 06:50 | W.COLOREPORT ---
Colonoscopy Report Date of procedure: 10/10/21 Pre-op diagnosis general: Colon Cancer Screening Post-op diagnosis procedure note: other (diverticulosis) Procedure: Colonoscopy Surgeon: Yanelis Valdes Anesthesia Type: General:No Airway (Trav Ortega CRNA) Estimated blood loss (mL): 0 Pathology: none sent Complications: None Disposition: same day Indications: The patient is here for Colonoscopy pre-op. His last screening was in 2009 and was unremarkable. He has no family history of colon cancer. He has not had any bowel habit changes. -Discussed colonoscopy bowel prep as well as the procedure. Discussed possible complications of the procedure to include bleeding, pain, perforation, missed small lesion/polyp, sore throat, aspiration and adverse reaction to the medications. Questions were answered to patient?s satisfaction. No guarantees were implied or given. Prep: Miralax/Dulcolax Procedure Start Time: 08:20 Procedure End Time: 08:44 Retraction Time: 13 minutes Findings: mild sigmoid diverticulosis Procedure Description: After informed consent was obtained the patient was taken to the procedure room and placed in a left decubitous position. Monitors were applied and a time out was done. The patients name, date of , procedure, allergies to medications and metal in their body was reviewed. The patient was then sedated. Once sedated and comfortable a rectal exam was done. External exam was normal. Internal exam revealed a normal sphincter tone and no palpable masses. The prostate felt smooth but enlarged. The scope was then introduced and retro-flexed. No internal hemorrhoids, polyps or masses were identified on retro-flexion. The scope was then advanced to the cecum without difficulty. The ileocecal vlave and appendiceal orifice were identified. The prep was adequate. The scope was then slowly retracted over 13 minutes back into the rectum. There were no polyps. There was mild sigmoid diverticulosis noted. The scope was removed and the patient was woken up and taken back to Same day surgery in stable condition. The patient tolerated the procedure well and there were no immediate complications. Follow up: The patient should follow up in 10 years unless they develop changes in bowel habits or other new gastrointestinal complaints.
--- NOTE | 2021-10-10 06:51 | W.PM.DSUDISC ---
Discharge Plan Disposition Patient Disposition: HOME Condition: Good Discharge Details Reason For Visit: Colonoscopy Attending Provider: Yanelis Valdes Primary Care Provider: Royal Sherwood Home Meds and New Rx's Prescriptions: Continued aspirin 81 mg tablet,delayed release (DR/EC) 81 mg PO DAILY RF: 0 magnesium oxide 400 MG capsule 400 mg PO HS Qty: 30 RF: 6 lisinopril 20 mg tablet 20 mg PO DAILY Qty: 90 RF: 3 rosuvastatin [Crestor] 10 mg tablet 10 mg PO DAILY Qty: 90 RF: 3 amlodipine 10 mg tablet 10 mg PO HS RF: 0 esomeprazole magnesium 40 mg capsule,delayed release(DR/EC) 40 mg PO QAM RF: 0 riboflavin (vitamin B2) [Vitamin B-2] 100 MG tablet 100 mg PO BID RF: 0 Discontinued polyethylene glycol 3350 17 gram/dose powder 238 g PO ONCE Qty: 238 RF: 0 bisacodyl [Dulcolax (bisacodyl)] 5 mg tablet,delayed release (DR/EC) 5 mg PO ONCE Qty: 4 RF: 0 Discharge Instructions Instructions: Diverticulosis (DC) Additional Instructions: Findings: Mild diverticulosis Follow up: 10 years Please call if you develop: fevers >101.5 Nausea or Vomiting Abdominal pain that is not transient Rectal bleeding that is more then a tbsp A hard abdomen and inability to pass gas DAY SURGERY UNIT POST ENDOSCOPY INSTRUCTIONS Instructions for everyone who is given Anesthesia: For your safety, please do the following for the next 24 Hours: a. Do not drive or operate dangerous equipment b. Do not drink alcohol beverages or use any recreational drugs for the first 24 hours or while taking pain medications. The medications in your body may have a reaction that can be dangerous. c. Do not make any important decisions or sign any important papers 1. Generally there are no restrictions on your activity after a day or so has gone by, but you may feel a bit fatigued for a few days. 2. After you arrive home you may have a light meal and return to a normal diet as you can tolerate it without feeling sick to your stomach. 3. After surgery, you may feel pain or discomfort. This should be only transient, but if it persists please contact your doctor. 4. If there are any questions regarding the findings of your procedure, please feel free to contact your doctor. 6. If you are unable to contact your doctor with a problem, contact the hospital at [phone]. 7. Continue all your regular medications unless directed otherwise. I understand the above instructions and have no questions. Signature of Patient or Responsible Adult Escort Date/Time Name of Responsible Adult Escort Signature of Nurse Date/Time Activity:: Activity as Tolerated Diet:: high fiber diet Discharge Orders Discharge Orders: Discharge Order (Routine); Ordered 10/10/21 Ordered By: Yanelis Valdes
[2021-10-10 07:23] VITALS: BP 127/83; PULSE 71; RESP 16; TEMP 36.3; O2SAT 99
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
[2021-10-10] MEDS: Lactated Ringers 1,000 ML 80 ML IV (07:43)
[2021-10-10 07:58] VITALS: BMI 27.9
[2021-10-10 08:54] VITALS: BP 100/52; PULSE 69; RESP 18; TEMP 36.3; O2SAT 95
--- NOTE | 2021-10-10 09:12 | W.ANESPOSTOP ---
Postoperative Evaluation Date, Time and Location Date Performed: 10/10/21 Time Performed: 08:55 Patient Location: Day Surgery Unit Vital Signs Most Recent Imported Vital Signs: Most Recent Vital Signs Temp Pulse Resp BP Pulse Ox 36.3 C L 69 18 100/52 L 95 10/10/21 08:54 10/10/21 08:54 10/10/21 08:54 10/10/21 08:54 10/10/21 08:54 Pain Score Most Recent Pain Score: Most Recent Pain Score Pain Level 0 10/10/21 08:54 Assessment Mental Status: Arousable with meaningful communication Airway and Respiratory Function: Patent airway with normal (patient baseline) respiratory exam Cardiovascular Function: Hemodynamically Stable Hydration Status: Adequately Hydrated Nausea & Vomiting: No Nausea or Vomiting Pain: Pt. Denies Any Pain Peripheral Nerve Block: Patient did not receive a nerve block
[2021-10-10 09:19] VITALS: BP 109/58; PULSE 64; RESP 16; TEMP 36.4; O2SAT 99
== END 2021-10-10 10:55 | disposition home or self-care (01) ==
LOC: SUR 07:04
PROVIDERS: PCP Emergency Medicine; Visit Provider Surgery
PROC: 0DJD8ZZ Inspection of Lower Intestinal Tract, Via Natural or Artificial Opening Endoscopic (ICD-10-PCS; CPT 45378; principal; 2021-10-10 08:30)
DX: Z12.11 Encounter for screening for malignant neoplasm of colon (principal); K21.9 Gastro-esophageal reflux disease without esophagitis; I10 Essential (primary) hypertension
CPT/HCPCS: 45378

== ENCOUNTER 2021-11-22 08:30 | Outpatient (RCR) | payer BC, SELFPAY | END 2021-11-25 23:59 | disposition home or self-care (01) | LOC: CR 08:30 | PROVIDERS: PCP Emergency Medicine; Visit Provider Family Medicine ==

== ENCOUNTER 2021-11-22 08:38 | Outpatient (RCR) | payer BC, SELFPAY | END 2021-11-25 23:59 | disposition home or self-care (01) | LOC: CR 08:38 | PROVIDERS: PCP Emergency Medicine; Visit Provider Family Medicine ==

== ENCOUNTER 2021-12-05 12:13 | Outpatient (CLI) | payer BC, SELFPAY ==
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
== END 2021-12-05 12:33 ==
PROVIDERS: PCP Emergency Medicine; Visit Provider Nurse Practitioner Family
DX: M25.532 Pain in left wrist (principal)
CPT/HCPCS: 73110

== ENCOUNTER 2021-12-21 08:00 | Outpatient (RCR) | payer BC, SELFPAY | END 2021-12-22 16:43 | LOC: CR 08:00 | PROVIDERS: PCP Emergency Medicine; Visit Provider Family Medicine | DX: Z51.89 Encounter for other specified aftercare (principal); Z95.5 Presence of coronary angioplasty implant and graft | CPT/HCPCS: S9472 ==

== ENCOUNTER 2021-12-26 08:00 | Outpatient (RCR) | payer BC, SELFPAY | END 2021-12-26 23:59 | disposition home or self-care (01) | LOC: CR 08:00 | PROVIDERS: PCP Emergency Medicine; Visit Provider Family Medicine | DX: Z51.89 Encounter for other specified aftercare (principal); Z95.5 Presence of coronary angioplasty implant and graft | CPT/HCPCS: S9472 ==

== ENCOUNTER 2022-01-23 08:00 | Outpatient (RCR) | payer BC, SELFPAY | END 2022-01-23 23:59 | disposition home or self-care (01) | LOC: CR 08:00 | PROVIDERS: PCP Emergency Medicine; Visit Provider Family Medicine | DX: Z51.89 Encounter for other specified aftercare (principal); Z95.5 Presence of coronary angioplasty implant and graft | CPT/HCPCS: S9472 ==

== ENCOUNTER 2022-02-17 08:00 | Outpatient (RCR) | payer BC, SELFPAY | END 2022-02-23 23:59 | disposition home or self-care (01) | LOC: CR 08:00 | PROVIDERS: PCP Family Medicine; Visit Provider Family Medicine | DX: Z51.89 Encounter for other specified aftercare (principal); Z95.5 Presence of coronary angioplasty implant and graft | CPT/HCPCS: S9472 ==

== ENCOUNTER 2022-03-20 08:00 | Outpatient (RCR) | payer BC, SELFPAY | END 2022-03-25 23:59 | disposition home or self-care (01) | LOC: CR 08:00 | PROVIDERS: PCP Family Medicine; Visit Provider Internal Medicine Cardiovascular Disease | DX: Z51.89 Encounter for other specified aftercare (principal); Z95.5 Presence of coronary angioplasty implant and graft | CPT/HCPCS: S9472 ==

== ENCOUNTER 2022-05-19 01:13 | Outpatient (CLI) | payer BC, SELFPAY ==
[2022-05-19 13:17] LABS: ALT 16 U/L (16-63); AST 21 U/L (15-37); Albumin 3.7 g/dL (3.4-5.0); Alkaline Phosphatase 98 U/L (46-116); Anion Gap 7.2 mmol/L (3-11); BUN 27 mg/dL (7-18); Bilirubin, Total 0.7 mg/dL (0.2-1.0); CO2 25.8 mmol/L (21.0-32.0); CREATININE 0.8 mg/dL (0.70-1.30); Calcium 8.4 mg/dL (8.5-10.1); Calculated LDL 39 mg/dL (<100); Chloride 109 mmol/L (98-107); Cholesterol 135 mg/dL (<200); Glucose 106 mg/dL (74-106); HDL Cholesterol 49 mg/dL (40-60); Potassium 4.2 mmol/L (3.5-5.1); Sodium 142 mmol/L (136-145); Total Protein 6.9 g/dL (6.4-8.2); Triglyceride 237 mg/dL (<150)
[2022-05-19 22:13] LABS: PSA, Screening 2.3 ng/mL (<=4.5)
[2022-05-22 10:12] LABS: Hepatitis C Ab w Rflx HCV PCR Negative (Negative)
[2022-05-22 10:31] LABS: HIV-1/2 Ag & Ab Screen Negative (Negative)
== END 2022-05-19 01:14 | disposition home or self-care (01) ==
LOC: LOS 01:13
PROVIDERS: Visit Provider Family Medicine
DX: E78.5 Hyperlipidemia, unspecified (principal); I10 Essential (primary) hypertension; Z11.59 Encounter for screening for other viral diseases; Z11.4 Encounter for screening for human immunodeficiency virus [HIV]; Z12.5 Encounter for screening for malignant neoplasm of prostate
CPT/HCPCS: 36415; 80053; 80061; 84153; 86803; 87389

== ENCOUNTER 2023-02-26 03:36 | Outpatient (CLI) | payer BC, SELFPAY ==
[2023-02-26 14:54] LABS: ALT 53 U/L (16-63); Anion Gap 8.5 mmol/L (3-11); BUN 17 mg/dL (7-18); CO2 29.5 mmol/L (21.0-32.0); CREATININE 1.1 mg/dL (0.70-1.30); Calculated LDL 72 mg/dL (<100); Chloride 105 mmol/L (98-107); Cholesterol 148 mg/dL (<200); Glucose 76 mg/dL (74-106); HDL Cholesterol 56 mg/dL (40-60); Potassium 4.7 mmol/L (3.5-5.1); Sodium 143 mmol/L (136-145); Triglyceride 102 mg/dL (<150)
[2023-02-27 10:29] LABS: HIV-1/2 Ag & Ab Screen Negative (Negative)
== END 2023-02-26 03:37 | disposition home or self-care (01) ==
PROVIDERS: PCP Nurse Practitioner Family; Visit Provider Family Medicine
DX: Z00.00 Encounter for general adult medical examination without abnormal findings (principal); I10 Essential (primary) hypertension; E78.5 Hyperlipidemia, unspecified; Z11.4 Encounter for screening for human immunodeficiency virus [HIV]
CPT/HCPCS: 36415; 80048; 80061; 87389; 84460

== ENCOUNTER 2023-07-22 17:48 | Emergency (ER) | payer BC, SELFPAY ==
[2023-07-22] VITALS (16 sets, daily range): BP systolic 127–158; BP diastolic 67–89; PULSE 76–89; RESP 6–22; TEMP 36.8; O2SAT 94–98
--- NOTE | 2023-07-22 17:45 | RT.EKG_ITS ---
APPROVED REPORT Exam: Resting ECG Reason for Exam: chest pain Patient Location: E HR:88 bpm ECG Measurements Heart Rate [address] 190 P 55 QRSd 101 QRS 77 QT 363 T 48 QTc 440 Conclusion Sinus rhythm...V-rate 60- 99 Inferolateral infarct, acute.
--- NOTE | 2023-07-22 18:00 | DI.RAD_ITS ---
Exam(s) XR PORTABLE CHEST AP EXAM: XR PORTABLE CHEST AP CLINICAL HISTORY: chest pain TECHNIQUE: 2D digital imaging was performed. COMPARISON: CR LEFT RIBS TO INCLUDE CXR from 04/05/2012 FINDINGS: LUNGS: Clear. No pleural abnormality seen. HEART: Normal size. AORTA: Normal diameter. BONES: Unremarkable for age. Soft tissues: Unremarkable. IMPRESSION: No acute findings. DATA REPOSITORY: RADIATION DOSE DELIVERED:
[2023-07-22] MEDS: Aspirin 81 MG CHEW 243 MG CH (18:04)
[2023-07-22 18:23] LABS: Abs Immature Grans 0.05 10^3/uL (0.0-0.06); Absolute Basophil Count 0.04 10^3/uL (0.0-0.2); Absolute Eosinophil Count 0.05 10^3/uL (0.0-0.7); Absolute Lymphocyte Count 1.12 10^3/uL (1.2-3.4); Absolute Monocyte Count 0.59 10^3/uL (0.1-0.8); Absolute Neutrophil Count 10.47 10^3/uL (1.2-6.7); Basophils % 0.3; Eosinophils % 0.4; Immature Grans % 0.4; Lymphocytes % 9.1; MCH 30.4 pg (27.0-33.0); MCHC 34.1 % (32.0-36.0); MCV 89 fL (80-95); MPV 9.1 fL (8.0-11.0); Monocytes % 4.8; Platelet Count 310 10^3/uL (130-400); RBC 4.93 10^6/uL (4.36-5.78); RDW 12.1 % (11.8-14.1); RDW-SD 39.8 fL; WBC 12.32 10^3/uL (4.4-10.8)
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
[2023-07-22 18:36] LABS: ALT 38 U/L (16-63); AST 27 U/L (15-37); Albumin 4.1 g/dL (3.4-5.0); Alkaline Phosphatase 66 U/L (46-116); Anion Gap 8.1 mmol/L (3-11); BUN 19 mg/dL (7-18); Bilirubin, Total 1.2 mg/dL (0.2-1.0); CO2 27.9 mmol/L (21.0-32.0); CREATININE 1.2 mg/dL (0.70-1.30); Calcium 9.2 mg/dL (8.5-10.1); Chloride 102 mmol/L (98-107); Estimated GFR 67.95 (mL/min/1.73m2); Glucose 137 mg/dL (74-106); Magnesium 1.8 mg/dL (1.8-2.4); Potassium 3.9 mmol/L (3.5-5.1); Sodium 138 mmol/L (136-145); Total Protein 7.5 g/dL (6.4-8.2)
[2023-07-22 18:43] LABS: NT-proBNP 33 pg/mL (<300); Troponin I < 50 ng/L (<or=60)
--- NOTE | 2023-07-22 18:58 | DI.VRAD_ITS ---
PROCEDURE INFORMATION: Exam: XR Chest Exam date and time: 07/22/2023 6:28 PM Age: 63 years old Clinical indication: Other: Chest pain TECHNIQUE: Imaging protocol: Radiologic exam of the chest. Views: 1 view. COMPARISON: CT UPPER EXTREMITY LT WO 09/02/2021 8:14 AM FINDINGS: Lungs: No consolidation. Pleural spaces: No pleural effusion. No pneumothorax. Heart/Mediastinum: No cardiomegaly. Bones/joints: No acute fracture. IMPRESSION: Negative portable chest. Dictated and Authenticated by: Margarita Umanzor MD. Ordering:TRUDY Weston MD
[2023-07-22] MEDS: Clopidogrel 300 MG TAB PO (19:02)
[2023-07-22] MEDS: Heparin 5,000 UNITS/ML VIAL 5000 UNITS (19:16)
== END 2023-07-22 19:30 | disposition short-term general hospital (02) ==
PROVIDERS: Emergency Provider Student in an Organized Health Care Education/Training Program; PCP Family Medicine
DX: I21.9 Acute myocardial infarction, unspecified; I10 Essential (primary) hypertension; I25.10 Atherosclerotic heart disease of native coronary artery without angina pectoris; Z95.5 Presence of coronary angioplasty implant and graft; E78.5 Hyperlipidemia, unspecified; Z79.899 Other long term (current) drug therapy
CPT/HCPCS: 80053; 93005; 96374; 96375; 99291; 71045; 83735; 83880; 84484; 85025; 93010; J1644; J2997

== ENCOUNTER 2024-05-31 10:36 | Outpatient (REF) | payer BC, SELFPAY ==
[2024-05-31 16:38] LABS: ALT 53 U/L (16-63); AST 43 U/L (15-37); Albumin 4.3 g/dL (3.4-5.0); Alkaline Phosphatase 65 U/L (46-116); Anion Gap 9.7 mmol/L (3-11); BUN 10 mg/dL (7-18); Bilirubin, Total 1.62 mg/dL (0.2-1.0); CO2 29.3 mmol/L (21.0-32.0); Calcium 9.5 mg/dL (8.5-10.1); Calculated LDL 76 mg/dL (<100); Chloride 103 mmol/L (98-107); Cholesterol 155 mg/dL (<200); Estimated GFR 84.05 (mL/min/1.73m2); Glucose 100 mg/dL (74-106); HDL Cholesterol 62 mg/dL (40-60); Potassium 3.8 mmol/L (3.5-5.1); Sodium 142 mmol/L (136-145); Total Protein 7.1 g/dL (6.4-8.2); Triglyceride 89 mg/dL (<150)
== END 2024-05-31 10:37 | disposition home or self-care (01) ==
LOC: LBN 10:36
PROVIDERS: PCP Family Medicine; Visit Provider Nurse Practitioner Family
DX: I10 Essential (primary) hypertension (principal); E78.5 Hyperlipidemia, unspecified; I25.10 Atherosclerotic heart disease of native coronary artery without angina pectoris
CPT/HCPCS: 80053; 80061